=== PATIENT | female | born 1980 | race Caucasian/White ===

== ENCOUNTER 2020-06-02 08:58 | Outpatient (CLI) | payer BC, SELFPAY ==
--- NOTE | ~2020-06-02 | MM_ITS ---
EXAMINATION: MM screening magdi BI w dyan HISTORY: Screening TECHNIQUE: Craniocaudal and mediolateral oblique 3-D tomosynthesis images were obtained and synthetic 2-D images were generated. CAD analysis was submitted and interpreted. COMPARISON: No prior mammogram is available for comparison at this institution. BREAST PARENCHYMAL COMPOSITION: The breasts are heterogeneously dense, which may obscure small masses . FINDINGS: There focal asymmetries in the upper outer quadrant of the left breast. There is no evidenc e for malignancy in the right breast. IMPRESSION: 1. Left breast asymmetries. 2. Additional mammographic views and possible breast ultrasound are recommended. BI-RADS Category 0: Incomplete: Needs additional imaging evaluation. Reviewed, dictated and finalized at location A. IMPRESSION: 1. Left breast asymmetries. 2. Additional mammographic views and possible breast ultrasound are recommended . BI-RADS Category 0: Incomplete: Needs additional imaging evaluation.
== END 2020-06-02 08:59 | disposition home or self-care (01) ==
LOC: ANHIMG 09:02
PROVIDERS: PCP Family Medicine; Visit Provider Family Medicine
DX: Z12.31 Encounter for screening mammogram for malignant neoplasm of breast (principal); R92.8 Other abnormal and inconclusive findings on diagnostic imaging of breast
CPT/HCPCS: 77063; 77067

== ENCOUNTER 2020-06-27 11:50 | Outpatient (CLI) | payer BC, SELFPAY ==
--- NOTE | ~2020-06-27 | MMUS_ITS ---
EXAMINATION: MM diagnostic mammo unilat LT, US breast LT limited HISTORY: Left breast asymmetries on baseline screening mammogram TECHNIQUE: Additional 3-D tomosynthesis images of the left breast were performed and synthetic 2-D im ages were generated. CAD analysis was submitted and interpreted. High resolution limited left breast ultrasound was performed. COMPARISON: 06/02/2020 FINDINGS: MAMMOGRAPHIC FINDINGS: No persistent focal asymmetry is identified with spot compression of the left breast. There is no joe picious mass, calcification, or architectural distortion. ULTRASOUND: There is no evidence of focal abnormal solid or cystic lesion in the vicinity of the mammographic fin ding in question. IMPRESSION: 1. No mammographic or sonographic evidence of malignancy. 2. Recommend routine screening mammography in one year. BI-RADS Category 1: Negative Reviewed, dictated and finalized at location A. IMPRESSION: 1. No mammographic or sonographic evidence of malignancy. 2. Recommend routine screening mammography in one year. BI-RADS Category 1: Negative
== END 2020-06-27 11:51 | disposition home or self-care (01) ==
PROVIDERS: PCP Family Medicine; Visit Provider Family Medicine
DX: R92.8 Other abnormal and inconclusive findings on diagnostic imaging of breast (principal)
CPT/HCPCS: 76642; 77065

== ENCOUNTER 2022-05-15 12:48 | Emergency (ER) | payer OTHER, SELFPAY ==
--- NOTE | ~2022-05-15 | XR_ITS ---
EXAMINATION: XR forearm LT 2V DATE: 05/15/2022 13:30 INDICATION: Left forearm pain TECHNIQUE: AP an lateral views of the left forearm were obtained. COMPARISON: none FINDINGS: Alignment is normal. No fracture. Joint spaces are normal. Soft tissues are unremarkable. No left elb ow joint effusion. IMPRESSION: 1. . Negative left forearm radiographs. Reviewed, dictated and finalized at location A.
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
[2022-05-15 12:49] VITALS: BP 146/107; PULSE 101; RESP 20; TEMP 36.6; O2SAT 95
--- NOTE | 2022-05-15 13:01 | ECG_ITS ---
Measurements Intervals [place] Rate: 95 P: 42 VA: 155 QRS: 35 QRSD: 96 T: 28 QT: 344 QTc: 434 Interpretive Statements SINUS RHYTHM POSSIBLE INFERIOR MYOCARDIAL INFARCTION , PROBABLY OLD [30 ms Q WAVE IN II/aVF] ABNORMAL ECG Electronically Signed On 05-15-2022 13:43:30 CDT by Americo Du M.D.
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
[2022-05-15] MEDS: IBUPROFEN 400 MG TABLET 800 MG PO (13:47)
[2022-05-15 14:05] VITALS: BP 116/75; PULSE 96; RESP 14; O2SAT 97
== END 2022-05-15 14:05 | disposition home or self-care (01) ==
PROVIDERS: Emergency Provider General Practice; PCP Family Medicine
DX: S20.02XA Contusion of left breast, initial encounter (principal); S50.812A Abrasion of left forearm, initial encounter; E03.9 Hypothyroidism, unspecified; V43.52XA Car driver injured in collision with other type car in traffic accident, initial encounter; R94.31 Abnormal electrocardiogram [ECG] [EKG]
CPT/HCPCS: 71046; 73090; 93005; 99284; A9270

== ENCOUNTER 2022-09-16 09:26 | Emergency (ER) | payer OTHER, SELFPAY ==
[2022-09-16 09:47] VITALS: BP 149/105; PULSE 79; RESP 16; TEMP 36.8; O2SAT 99
--- NOTE | 2022-09-16 10:35 | ED.URI ---
HPI - URI/Sore Throat General Chief Complaint: Upper Respiratory Infection Stated Complaint: Cough, Sore Throat Source: patient Mode of arrival: ambulatory Limitations: no limitations History of Present Illness HPI Narrative: 41-year-old female presents to the [facility] with complaints of sore throat, cough runny nose since this morning. Patient has not tried taking any [id number] medications for her symptoms. Patient denies body aches, chills, fever, headache, nausea vomiting or diarrhea. Patient denies sick contacts. Patient denies recent travel MD elicited complaint: cough, sore throat, rhinorrhea and nasal congestion Onset (ago): hour(s) (5) Able to tolerate fluids by mouth: Yes Exacerbating factors: nothing Relieving factors: nothing Associated symptoms: denies other symptoms Treatments prior to arrival: none Related Data Home Medications Medication Instructions Recorded Confirmed levothyroxine 125 mcg tablet 125 mcg DIRECTED 09/16/22 09/16/22 venlafaxine 75 mg capsule,extended 75 mg PO DIRECTED 09/16/22 09/16/22 release 24 hr Allergies Allergy/AdvReac Type Severity Reaction Status Date / Time No Known Allergies Allergy Verified 05/15/22 12:52 Review of Systems Constitutional: Constitutional: Denies chills, Denies fatigue, Denies fever(s) and Denies weakness ENT: Denies dizziness, Denies epistaxis, Reports nasal congestion and Reports sore throat Cardiovascular: Cardiovascular: Denies chest pain Respiratory: Respiratory: Denies chest congestion, Reports cough, Denies dyspnea and Denies wheezing Gastrointestinal: Gastrointestinal: Denies diarrhea, Denies nausea and Denies vomiting Integumentary/Breasts: Skin/Breast: Denies rash Allergic/Immunologic: Allergic/Immunologic: Denies lip swelling, Denies throat swelling, Denies tongue swelling and Denies wheezing PMFSH Past Medical History Medical History Hypothyroidism Family History Family History Mother Family history of seizure disorder Social History Social History Smoking status: Never smoker Alcohol intake: current Comments At time of signature, I agree with nursing past medical, surgical, social and family history. There is no relevant family history pertinent to the presenting complaint. Exam Const: General: healthy appearing Nutritional Appearance: well nourished Orientation/consciousness: patient oriented x3 Limitations: no limitations HENMT: Head: normal to inspection Ears: external ears normal and TM's normal bilaterally Face/Nose/Sinus: Nasal discharge present clear bilateral Face and sinus: normal facial exam Mouth: Yes Normal oral and palatal mucosa present and Yes moist mucous membranes Throat: uvula midline Other: mild erythema noted to posterior pharynx. Moderate nasal congestion noted Neck: Neck: normal visual inspection Resp: Effort & Inspection: normal respiratory effort and not labored Auscultation: clear to auscultation bilaterally, no crackles, no rales, no rhonchi and no wheezes Cardio: Rate: regular rate Rhythm: regular rhythm Heart sounds: no murmurs Skin: General skin exam: normal color Rashes: no rashes Wounds: no wounds Neuro: General: patient oriented x3 Speech: normal speech Psych: Affect: normal affect Attitude: cooperative Course Course Level of Care: Express Care Visit Vital Signs Vital signs: Vital Signs Temperature 36.8 C 09/16/22 09:47 Pulse Rate 79 09/16/22 09:47 Respiratory Rate 16 09/16/22 09:47 Blood Pressure 149/105 H 09/16/22 09:47 Pulse Oximetry 99 09/16/22 09:47 Oxygen Delivery Room Air 09/16/22 09:47 Temperature 36.8 C 09/16/22 09:47 Pulse Rate 79 09/16/22 09:47 Respiratory Rate 16 09/16/22 09:47 Blood Pressure 149/105 H 09/16/22 09:47 Pulse Oxim
== END 2022-09-16 10:48 | disposition home or self-care (01) ==
PROVIDERS: Emergency Provider Nurse Practitioner Family; PCP Family Medicine
DX: B34.9 Viral infection, unspecified (principal); Z20.822 Contact with and (suspected) exposure to COVID-19; E03.9 Hypothyroidism, unspecified
CPT/HCPCS: 87081; 87426; 99213; C9803; G0463

== ENCOUNTER 2022-12-17 08:36 | Emergency (ER) | payer OTHER, SELFPAY ==
[2022-12-17 08:50] VITALS: BP 124/92; PULSE 80; RESP 16; TEMP 35.8; O2SAT 99
--- NOTE | 2022-12-17 09:11 | ED.URI ---
HPI - URI/Sore Throat General Chief Complaint: Upper Respiratory Infection Stated Complaint: cough Time Seen by Provider: 12/17/22 09:11 Source: patient, RN notes reviewed and old records reviewed Mode of arrival: ambulatory Limitations: no limitations History of Present Illness HPI Narrative: 42-year-old female presents to the [facility] with complaints of a cough for 3 days. Denies fevers. Has taken 1 dose of cold medicine and states she was not better so she came to be evaluated Onset (ago): day(s) (3) Related Data Home Medications Medication Instructions Recorded Confirmed levothyroxine 125 mcg tablet 125 mcg DIRECTED 09/16/22 12/17/22 venlafaxine 75 mg capsule,extended 75 mg PO DIRECTED 09/16/22 12/17/22 release 24 hr venlafaxine 150 mg 150 mg PO DIRECTED 12/17/22 12/17/22 capsule,extended release 24 hr Allergies Allergy/AdvReac Type Severity Reaction Status Date / Time No Known Allergies Allergy Verified 05/15/22 12:52 Review of Systems Review of Systems: All systems reviewed & are unremarkable except as noted in HPI and below Constitutional: Constitutional: Reports no additional constitutional complaints Eyes: Eyes: Reports no additional eye complaints ENT: Reports as per HPI Cardiovascular: Cardiovascular: Reports no additional cardiovascular complaints, Denies chest pain and Denies dyspnea Respiratory: Respiratory: Reports no additional respiratory complaints, Denies chest congestion, Denies cough and Denies dyspnea Gastrointestinal: Gastrointestinal: Reports no additional gastrointestinal complaints, Denies abdominal pain, Denies nausea and Denies vomiting Musculoskeletal: Musculoskeletal: Reports no additional musculoskeletal complaints Integumentary/Breasts: Skin/Breast: Reports system reviewed and no additional complaints, except as docu Neurologic: Reports system reviewed and no additional complaints, except as documented Psychiatric: Psychiatric: Reports no additional psychiatric complaints Allergic/Immunologic: Allergic/Immunologic: Reports no additional allergic/immunologic complaints PMFSH Past Medical History Medical History Hypothyroidism Family History Family History Mother Family history of seizure disorder Social History Social History Smoking status: Never smoker Alcohol intake: current Comments At the time of my signature, I reviewed and agree with the nursing past medical, surgical, social, and family history. There is no relevant family history pertinent to the patient complaint. Exam Const: General: cooperative, healthy appearing, comfortable, no acute distress, well developed, alert and well nourished Nutritional Appearance: well nourished Orientation/consciousness: patient oriented x3 Limitations: no limitations HENMT: Head: normal to inspection Ears: hearing grossly normal bilaterally and external ears normal Face/Nose/Sinus: Normal external nose present, Normal nares present, Normal nasal mucous membranes and turbinates present and normal facial exam Face and sinus: normal facial exam Mouth: Yes Normal oral and palatal mucosa present, Yes lip normal and Yes moist mucous membranes Throat: posterior oropharynx normal, uvula midline and postnasal drainage Eyes: General: appearance normal, both eyes and all related structures Alignment and Position: alignment normal Periorbital: periorbital findings normal Conjunctivae: conjunctivae normal Pupils: Equal, round and reactive pupils present EOM: EOMs intact bilaterally Neck: Neck: normal visual inspection, full ROM, no lymphadenopathy and no meningeal signs Chest: Chest palpation & inspection: normal inspection of the chest Resp: Effort & Inspection: normal respiratory effort and able to speak in complete sentences Auscultation:
== END 2022-12-17 09:46 | disposition home or self-care (01) ==
PROVIDERS: Emergency Provider Nurse Practitioner; PCP Family Medicine
DX: J06.9 Acute upper respiratory infection, unspecified (principal); E03.9 Hypothyroidism, unspecified
CPT/HCPCS: 99213; G0463

== ENCOUNTER 2023-07-16 09:52 | Emergency (ER) | payer OTHER, SELFPAY ==
--- NOTE | 2023-07-16 09:55 | ED.URI ---
HPI - URI/Sore Throat General Chief Complaint: Upper Respiratory Infection Stated Complaint: Sinus Time Seen by Provider: 07/16/23 10:00 Source: patient, RN notes reviewed and old records reviewed Mode of arrival: ambulatory Limitations: no limitations History of Present Illness HPI Narrative: 42 year female presents to the [facility] with chills, headache, cough and runny nose since last night. No treatment prior to arrival, states I have nothing at home. ? Denies chest pain, shortness of breath. Denies abdominal pain. Treatments prior to arrival: none Related Data Home Medications Medication Instructions Recorded Confirmed levothyroxine 125 mcg tablet 125 mcg DIRECTED 09/16/22 07/16/23 venlafaxine 75 mg capsule,extended 75 mg PO DIRECTED 09/16/22 07/16/23 release 24 hr venlafaxine 150 mg 150 mg PO DIRECTED 12/17/22 07/16/23 capsule,extended release 24 hr Allergies Allergy/AdvReac Type Severity Reaction Status Date / Time No Known Allergies Allergy Verified 07/16/23 10:01 Review of Systems Review of Systems: All systems reviewed & are unremarkable except as noted in HPI and below Constitutional: Constitutional: Reports as per HPI Eyes: Eyes: Reports no additional eye complaints ENT: Reports as per HPI Cardiovascular: Cardiovascular: Reports no additional cardiovascular complaints, Denies chest pain and Denies dyspnea Respiratory: Respiratory: Reports no additional respiratory complaints, Denies chest congestion, Denies cough and Denies dyspnea Gastrointestinal: Gastrointestinal: Reports no additional gastrointestinal complaints, Denies abdominal pain, Denies nausea and Denies vomiting Musculoskeletal: Musculoskeletal: Reports no additional musculoskeletal complaints Integumentary/Breasts: Skin/Breast: Reports system reviewed and no additional complaints, except as docu Neurologic: Reports system reviewed and no additional complaints, except as documented Psychiatric: Psychiatric: Reports no additional psychiatric complaints Allergic/Immunologic: Allergic/Immunologic: Reports no additional allergic/immunologic complaints PMFSH Past Medical History Medical History Hypothyroidism Family History Family History Mother Family history of seizure disorder Social History Social History Smoking status: Never smoker Alcohol intake: current Comments At the time of my signature, I reviewed and agree with the nursing past medical, surgical, social, and family history. There is no relevant family history pertinent to the patient complaint. Exam Const: General: cooperative, no acute distress, well developed, alert, ill appearing acutely (mild), uncomfortable and well nourished Nutritional Appearance: well nourished and obese Orientation/consciousness: patient oriented x3 Limitations: no limitations HENMT: Head: normal to inspection Ears: hearing grossly normal bilaterally, external ears normal, TM's normal bilaterally, EAC's normal, mastoids normal and no periauricular adenopathy Face/Nose/Sinus: Normal external nose present, Normal nares present, Normal nasal mucous membranes and turbinates present, Nasal discharge present clear bilateral, normal facial exam and face symmetric Face and sinus: normal facial exam and face symmetric Mouth: Yes Normal oral and palatal mucosa present, Yes lip normal and Yes moist mucous membranes Throat: posterior oropharynx normal, uvula midline and postnasal drainage Eyes: General: appearance normal, both eyes and all related structures Alignment and Position: alignment normal Periorbital: periorbital findings normal Pupils: Equal, round and reactive pupils present EOM: EOMs intact bilaterally Neck: Neck: normal visual inspection, full ROM, no lymphadenopathy and no meningeal signs Chest:
[2023-07-16 10:03] VITALS: BP 136/95; PULSE 106; RESP 16; TEMP 37.5; O2SAT 100
== END 2023-07-16 10:13 | disposition home or self-care (01) ==
PROVIDERS: Emergency Provider Nurse Practitioner; PCP Family Medicine
DX: U07.1 COVID-19 (principal); E03.9 Hypothyroidism, unspecified
CPT/HCPCS: 87426; 87804; 99213; C9803; G0463

== ENCOUNTER 2023-07-22 16:24 | Emergency (ER) | payer OTHER, SELFPAY ==
[2023-07-22 16:43] VITALS: BP 110/84; PULSE 80; RESP 16; TEMP 37.2; O2SAT 100
--- NOTE | 2023-07-22 16:55 | ED.URI ---
HPI - URI/Sore Throat General Chief Complaint: Upper Respiratory Infection Stated Complaint: Allgeries Time Seen by Provider: 07/22/23 16:55 Source: patient, RN notes reviewed and old records reviewed Mode of arrival: ambulatory Limitations: no limitations History of Present Illness HPI Narrative: 42-year-old female presents to the [facility] follow-up from [facility] that she tested positive last week. Tested positive on the 16 of July. Patient requesting retesting, discussed with patient that we do not retest that according to CDC guidelines she is at a quarantine after 5 days of symptoms. Patient states that she did finish her Paxlovid Currently has no symptoms and states that she is feeling better. Related Data Home Medications Medication Instructions Recorded Confirmed levothyroxine 125 mcg tablet 125 mcg DIRECTED 09/16/22 07/22/23 venlafaxine 75 mg capsule,extended 75 mg PO DIRECTED 09/16/22 07/22/23 release 24 hr venlafaxine 150 mg 150 mg PO DIRECTED 12/17/22 07/22/23 capsule,extended release 24 hr Allergies Allergy/AdvReac Type Severity Reaction Status Date / Time No Known Allergies Allergy Verified 07/22/23 16:42 Review of Systems Review of Systems: All systems reviewed & are unremarkable except as noted in HPI and below Constitutional: Constitutional: Reports no additional constitutional complaints Eyes: Eyes: Reports no additional eye complaints ENT: Reports system reviewed and no additional complaints, except as documented Cardiovascular: Cardiovascular: Reports no additional cardiovascular complaints, Denies chest pain and Denies dyspnea Respiratory: Respiratory: Reports no additional respiratory complaints, Denies chest congestion, Denies cough and Denies dyspnea Gastrointestinal: Gastrointestinal: Reports no additional gastrointestinal complaints, Denies abdominal pain, Denies nausea and Denies vomiting Musculoskeletal: Musculoskeletal: Reports no additional musculoskeletal complaints Integumentary/Breasts: Skin/Breast: Reports system reviewed and no additional complaints, except as docu Neurologic: Reports system reviewed and no additional complaints, except as documented Psychiatric: Psychiatric: Reports no additional psychiatric complaints Allergic/Immunologic: Allergic/Immunologic: Reports no additional allergic/immunologic complaints PMFSH Past Medical History Medical History Hypothyroidism Family History Family History Mother Family history of seizure disorder Social History Social History Smoking status: Never smoker Alcohol intake: current Comments At the time of my signature, I reviewed and agree with the nursing past medical, surgical, social, and family history. There is no relevant family history pertinent to the patient complaint. Exam Const: General: cooperative, healthy appearing, comfortable, no acute distress, well developed, alert and well nourished Nutritional Appearance: well nourished and obese Orientation/consciousness: patient oriented x3 Limitations: no limitations HENMT: Head: normal to inspection Ears: hearing grossly normal bilaterally and external ears normal Face/Nose/Sinus: Normal external nose present, Normal nares present, Normal nasal mucous membranes and turbinates present, normal facial exam and face symmetric Face and sinus: normal facial exam and face symmetric Eyes: General: appearance normal, both eyes and all related structures Alignment and Position: alignment normal Periorbital: periorbital findings normal Pupils: Equal, round and reactive pupils present EOM: EOMs intact bilaterally Neck: Neck: normal visual inspection, full ROM, no lymphadenopathy and no meningeal signs Chest: Chest palpation & inspection: normal inspection of the chest Resp: Effo
== END 2023-07-22 17:31 | disposition home or self-care (01) ==
PROVIDERS: Emergency Provider Nurse Practitioner; PCP Family Medicine
DX: Z71.1 Person with feared health complaint in whom no diagnosis is made (principal); E03.9 Hypothyroidism, unspecified
CPT/HCPCS: 99211; G0463

== ENCOUNTER 2024-03-17 18:04 | Emergency (ER) | payer OTHER, SELFPAY ==
--- NOTE | ~2024-03-17 | CT_ITS ---
EXAMINATION: CT abdomen pelvis wo con DATE: 03/17/2024 20:16 INDICATION: Right flank pain TECHNIQUE: Computed tomography (CT) of the abdomen and pelvis was performed without intravenous contr ast. Automated exposure control and iterative reconstruction technique were employed. The dose-length product was 1294.64 mGy-cm. COMPARISON: None FINDINGS: Mild bronchiectasis and mild discoid atelectasis in the left lower lobe. Heart size is normal. No per icardial or pleural effusion. Liver, gallbladder, spleen, pancreas and bilateral adrenal glands are n ormal. Bilateral nonobstructing nephrolithiasis with 2 mm stone at a middle calyx of the right kidney and 3 mm stone in an upper pole calyx of the left kidney. No ureteral stones or hydronephrosis. Blad mario is decompressed which limits evaluation. Retroverted uterus appears normal with expected appearan ce of bilateral Essure type fallopian tube occlusion devices. 4.5 cm left adnexal cyst. There are few scattered colonic diverticula without adjacent from trace stranding to suggest diverticulitis. Small bowel and appendix are normal. No free intraperitoneal gas or fluid. No pathologically enlarged abdo samm or pelvic lymphadenopathy. Mild thoracolumbar levocurvature with moderate spondylosis. IMPRESSION: 1. Bilateral nonobstructing nephrolithiasis. No ureteral stones or hydronephrosis. 2. 4.5 cm left ovarian cyst. 3. Bilateral Essure type fallopian tube occlusion devices in expected position. Reviewed, dictated and finalized at location A. IMPRESSION: 1. Bilateral nonobstructing nephrolithiasis. No ureteral stones or hydronephros is. 2. 4.5 cm left ovarian cyst. 3. Bilateral Essure type fallopian tube occlusion devices in expected position.
[2024-03-17 18:13] VITALS: BP 134/89; PULSE 102; RESP 18; TEMP 36.7; O2SAT 99
--- NOTE | 2024-03-17 19:05 | ED.BACK ---
HPI - Back Pain/Injury General Chief Complaint: Back Pain/Injury Stated Complaint: back pain Time Seen by Provider: 03/17/24 18:56 History of Present Illness HPI Narrative: 43-year-old female with no past medical history presents to emergency department for low back pain that started this morning. Patient states she went to bed last night without any symptoms and woke up this morning with sharp pains in her back that is worse with flexion and extension of her back. States she lay still she has no back pain. She denies dysuria or hematuria, urinary frequency urgency, abdominal pain, fever, nausea or vomiting, recent surgeries or procedures on her back. States symptoms do not radiate down her legs, denies numbness or tingling. Denies saddle anesthesia, bladder retention or incontinence, bowel incontinence, history of cancer, IV drug use. No use of immunosuppressants. Denies injury or trauma. She is concerned she slept on her back wrong. She is currently on her menstrual cycle. Related Data Home Medications Medication Instructions Recorded Confirmed levothyroxine 125 mcg tablet 125 mcg DIRECTED 09/16/22 07/22/23 venlafaxine 75 mg capsule,extended 75 mg PO DIRECTED 09/16/22 07/22/23 release 24 hr venlafaxine 150 mg 150 mg PO DIRECTED 12/17/22 07/22/23 capsule,extended release 24 hr Allergies Allergy/AdvReac Type Severity Reaction Status Date / Time No Known Allergies Allergy Verified 03/17/24 18:51 Review of Systems Review of Systems: CONSTITUTIONAL: Denies fever, chills, or sweats. EYES: Denies visual changes, redness, or discharge. ENT: Denies rhinorrhea, congestion, sore throat, or otalgia. CARDIOVASCULAR: Denies chest pain, palpitations, or edema. RESPIRATORY: Denies cough or dyspnea. GASTROINTESTINAL: Denies abdominal pain, nausea, vomiting, or diarrhea. GENITOURINARY: Denies dysuria or hematuria. SKIN: Denies rash or itching. MUSCULOSKELETAL: See HPI NEUROLOGIC: Denies headache, numbness, or weakness. PSYCHIATRIC: Denies anxiety or depression. [facility]LY [facility] Past Medical History Medical History Hypothyroidism Family History Family History Mother Family history of seizure disorder Social History Social History Smoking status: Never smoker Alcohol intake: current Exam Narrative: GENERAL: Well-appearing, well-nourished, and in no acute distress. HEAD: Normocephalic, atraumatic. EYES: PERRLA and EOMI. ENT: Nares clear, no rhinorrhea or epistaxis. Mucous membranes moist. NECK: Supple. BACK: No midline lumbar spinous tenderness, step-offs or deformities. Tenderness throughout the paraspinous muscles and low back. No overlying skin changes. CHEST: Clear to auscultation. No respiratory distress. HEART: Regular rate and rhythm. No murmur heard. Normal peripheral pulses. ABDOMEN: Soft, nontender, nondistended, normal active bowel sounds. EXTREMITIES: Normal range of motion. No edema. Hip flexion and extension, knee flexion and extension, dorsiflexion and plantar flexion 5/5 bilaterally. Sensation intact throughout. No saddle anesthesia. SKIN: Warm, dry, no rash. NEURO: No focal deficits. Alert and oriented x3 Course Vital Signs Vital signs: Vital Signs Temperature 98.0 F 03/17/24 18:13 Pulse Rate 102 H 03/17/24 18:13 Respiratory Rate 18 03/17/24 18:13 Blood Pressure 134/89 03/17/24 18:13 Pulse Oximetry 99 03/17/24 18:13 Oxygen Delivery Room Air 03/17/24 18:13 Temperature 98.0 F 03/17/24 18:13 Pulse Rate 102 H 03/17/24 18:13 Respiratory Rate 18 03/17/24 18:13 Blood Pressure 134/89 03/17/24 18:13 Pulse Oximetry 99 03/17/24 18:13 Oxygen Delivery Room Air 03/17/24 18:13 MDM - Back Pain/Injury MDM Narrative Medical decision making narrative: 43-year-ol
[2024-03-17] MEDS: CYCLOBENZAPRINE HCL 10 MG TABLET PO (19:13)
[2024-03-17] MEDS: ACETAMINOPHEN 500 MG TABLET 1000 MG PO (19:13)
[2024-03-17] MEDS: KETOROLAC 30 MG/ML VIAL (*BKC) IM (19:13)
[2024-03-17] MEDS: LIDOCAINE 5% PATCH 1 PATCH TRANSDERM (19:13)
[2024-03-17 19:36] LABS: Appearance Urine Turbid (Clear); Bacteria Urine 2+ /hpf; Bilirubin Urine 1+ (Negative); Blood Urine 3+ (Negative); Color Urine Dark Yellow (Yellow); Glucose Urine UA Negative (Negative); Ketones Urine Trace mg/dL (Negative); Leukocyte Esterase Ur Negative LEU/UL (Negative); Need Manual Microscopic Reviewed; Nitrate Urine Negative (Negative); Non Pathogenic Casts 0-2; Protein Urine 3+ mg/dL (Negative); RBC Urine >100 /hpf (0-2); Squamous Epithelial Cell Urine Moderate /hpf (Few); WBC Urine 21-50 /hpf (0-3)
[2024-03-17 19:37] LABS: Add Urine Microscopic? YES; Specific Grav Ur 1.041 (1.001-1.035)
--- NOTE | 2024-03-17 19:45 | PC.NURSE ---
patient refused to do test, there's no way that I can be because I am on my period right now .
[2024-03-17] MEDS: SULFAMETHOXAZOLE/TRIMETHOPRIM 800/160 MG DS TABLET 1 TAB PO (20:50)
[2024-03-17 20:54] VITALS: BP 141/74; PULSE 78; RESP 20; O2SAT 98
== END 2024-03-17 20:54 | disposition home or self-care (01) ==
PROVIDERS: Emergency Provider Physician Assistant; PCP Family Medicine
DX: N83.202 Unspecified ovarian cyst, left side (principal); M54.50 Low back pain, unspecified; R82.998 Other abnormal findings in urine; E03.9 Hypothyroidism, unspecified; Z79.899 Other long term (current) drug therapy; N20.0 Calculus of kidney; Z97.5 Presence of (intrauterine) contraceptive device
CPT/HCPCS: 74176; 81001; 87086; 87088; 96372; 99284; A9270; J1885

== ENCOUNTER 2024-04-12 15:51 | Emergency (ER) | payer OTHER, SELFPAY ==
--- NOTE | ~2024-04-12 | XR_ITS ---
EXAM: XR pelvis 1-2V DATE: 04/12/2024 18:10 HISTORY: fall PAIN MOSTLY TO LEFT BUTTOCK WITH SOME BRUISING . COMPARISON: None available. FINDINGS: Normal mineralization. No fracture or dislocation. No lytic or blastic lesion. Joint space s are maintained. No erosion or periosteal change. Tubal ligations. Soft tissues within normal limits . IMPRESSION: No acute osseous finding in the pelvis. Reviewed, dictated and finalized at location K.
--- NOTE | ~2024-04-12 | CT_ITS ---
EXAMINATION: CT lumbar spine wo con DATE: 04/12/2024 16:54 INDICATION: Low back pain post fall TECHNIQUE: Computed tomography (CT) of the lumbar spine was performed without intravenous contrast. A utomated exposure control and iterative reconstruction technique were employed. The dose-length produ ct was 1172.13 mGy-cm. COMPARISON: CT dated 03/17/2024 FINDINGS: Alignment is normal. Chronic minimal likely physiologic anterior wedging at T11. Lumbar jeri tebral body heights are normal. Moderate disc height loss at T10-T11 and L2-L3, mild disc height loss at T11-T12, L1-L2, L3-L4 and L4-L5 which are unchanged. A few nonobstructing small stones scattered throughout calyces of the left kidney, the largest measuring up to 3 mm. Some of the calcific density appears more amorphous and/or and attenuation suggesting possible medullary nephrocalcinosis. Partia lly visualized prominent subcutaneous hematoma overlying the left posterior iliac spine. The followin g disc levels are specifically discussed: T11-T12: Small small osteophyte along the margin of a small right paracentral disc protrusion. Develo pmentally unfused apophyseal center of the left the superior articular process of T12. There is mild bilateral facet joint osteoarthritis. There is no neural foraminal stenosis. There is mild central ca nal stenosis. T12-L1: The disc does not extend beyond the endplate margin. Developmentally unfused apophyseal cente rs of the bilateral transverse and superior articular processes of L1. There is mild bilateral facet joint osteoarthritis. There is no neural foraminal stenosis. There is no central canal stenosis. L1-L2: Moderate size central disc extrusion with the extrusion extending 1.3 cm cephalad to the level of the inferior endplate of L1. This appears to been subtly present on review of the prior CT. Unfus ed apophyseal center at the left superior articular process of L2. There is mild bilateral facet join t osteoarthritis. There is no neural foraminal stenosis. There is mild central canal stenosis. L2-L3: Disc is bulging. There is mild bilateral facet joint osteoarthritis. There is mild bilateral n eural foraminal stenosis. There is mild central canal stenosis. L3-L4: Disc is bulging. There is mild right and mild to moderate left facet joint osteoarthritis. The re is mild bilateral neural foraminal stenosis. There is mild central canal stenosis. L4-L5: Disc is bulging. There is mild to moderate bilateral facet joint osteoarthritis. There is mild left and moderate right neural foraminal stenosis. There is mild central canal stenosis. L5-S1: Disc is bulging. There is mild left and mild to moderate right facet joint osteoarthritis. The re is mild to moderate left and minimal right neural foraminal stenosis. There is no central canal st enosis. IMPRESSION: 1. Mild to moderate lumbar and lower thoracic spondylosis. No acute osseous abnormality. 2. Partially visualized prominent subcutaneous hematoma posterior to the left posterior iliac spine. 3. Nonobstructing left nephrolithiasis with suggestion of possible mild associated medullary nephroca lcinosis. Reviewed, dictated and finalized at location A. IMPRESSION: 1. Mild to moderate lumbar and lower thoracic spondylosis. No acute osseous abn ormality. 2. Partially visualized prominent subcutaneous hematoma posterior to the left p osterior iliac spine. 3. Nonobstructing left nephrolithiasis with suggestion of possible mild associa benito medullary nephrocalcinosis.
[2024-04-12 16:30] VITALS: BP 141/89; PULSE 96; RESP 20; TEMP 36.3; O2SAT 100
--- NOTE | 2024-04-12 16:33 | ED.BACK ---
HPI - Back Pain/Injury General Chief Complaint: Back Pain/Injury Stated Complaint: fell down 4 stairs today, now has back pain Time Seen by Provider: 04/12/24 16:33 Focused HPI: This is a 43-year-old female that presents to the emergency department after a fall down stairs. She did not hit her head or lose consciousness. Reports slipping and falling down a couple of steps. Reports she has had low back pain since. Worse with ambulation and relieved with rest. Denies numbness or weakness. GENERAL: Well-appearing, well-nourished, and in no acute distress. HEAD: Normocephalic, atraumatic. CHEST: Clear to auscultation. ?No respiratory distress. HEART: Regular rate and rhythm.? NEURO: ?Alert and oriented x3. Patient screened in triage and initial orders placed.? ?Additional care and disposition to be based upon?diagnostic testing and treatment. Source: patient Mode of arrival: ambulatory Limitations: no limitations Related Data Home Medications Medication Instructions Recorded Confirmed levothyroxine 125 mcg tablet 125 mcg DIRECTED 09/16/22 07/22/23 venlafaxine 75 mg capsule,extended 75 mg PO DIRECTED 09/16/22 07/22/23 release 24 hr venlafaxine 150 mg 150 mg PO DIRECTED 12/17/22 07/22/23 capsule,extended release 24 hr Allergies Allergy/AdvReac Type Severity Reaction Status Date / Time No Known Allergies Allergy Verified 04/12/24 17:52 Review of Systems Review of Systems: CONSTITUTIONAL: Denies fever MUSCULOSKELETAL: Reports back pain, and myalgia. NEUROLOGIC: Denies numbness, or weakness All systems reviewed & are unremarkable except as noted in HPI and below PMFSH Past Medical History Medical History Hypothyroidism Family History Family History Mother Family history of seizure disorder Social History Social History Smoking status: Never smoker Alcohol intake: current Exam Narrative: GENERAL: Well-appearing, well-nourished, and in no acute distress. HEAD: Normocephalic, atraumatic. EYES: EOMI. CHEST: Clear to auscultation. No respiratory distress. No wheezes rales or rhonchi HEART: Regular rate and rhythm. No murmur heard. Normal peripheral pulses. BACK: Tender to palpation of midline lumbar spine EXTREMITIES: Normal range of motion. No edema. SKIN: Warm, dry, no rash. NEURO: No focal deficits. Alert and oriented x3. Normal gait PSYCH: Normal mood and affect Course Course Emergency Course: patient updated on her workup and agrees with plan of care Vital Signs Vital signs: Vital Signs Temperature 97.4 F L 04/12/24 16:30 Pulse Rate 96 04/12/24 16:30 Respiratory Rate 20 04/12/24 16:30 Blood Pressure 141/89 H 04/12/24 16:30 Pulse Oximetry 100 04/12/24 16:30 Oxygen Delivery Room Air 04/12/24 16:30 Temperature 97.4 F L 04/12/24 16:30 Pulse Rate 90 04/12/24 17:54 Respiratory Rate 15 04/12/24 17:54 Blood Pressure 152/105 H 04/12/24 17:54 Pulse Oximetry 100 04/12/24 17:54 Oxygen Delivery Room Air 04/12/24 16:30 MDM - Back Pain/Injury MDM Narrative Medical decision making narrative: Patient presents to the emergency department for low back pain after a fall. Patient is neurologically intact. CT lumbar spine is without acute osseous abnormalities. Does show a hematoma. Pelvis x-ray without acute osseous abnormalities. Patient was updated on her workup and agrees with plan of care. Instructed to rest, ice and take [id number] pain medication as needed. She is to follow up with primary provider. She was given warnings to return to the ER Differential Diagnosis Differential diagnosis: Likely other ( lumbar spine fracture, contusion, pelvic fracture) Imaging Data Radiologist's impression: ITS Impressions Lumbar Spine CT 04/12/24 16:58 IMP
[2024-04-12 17:54] VITALS: BP 152/105; PULSE 90; RESP 15; O2SAT 100
[2024-04-12] MEDS: ACETAMINOPHEN 500 MG TABLET 1000 MG PO (17:58)
[2024-04-12 18:38] VITALS: BP 149/111; PULSE 90; RESP 15; TEMP 37; O2SAT 98
== END 2024-04-12 18:38 | disposition home or self-care (01) ==
PROVIDERS: Emergency Provider Physician Assistant; PCP Family Medicine
DX: S30.0XXA Contusion of lower back and pelvis, initial encounter (principal); E03.9 Hypothyroidism, unspecified; M47.816 Spondylosis without myelopathy or radiculopathy, lumbar region; M47.814 Spondylosis without myelopathy or radiculopathy, thoracic region; N20.0 Calculus of kidney; W10.9XXA Fall (on) (from) unspecified stairs and steps, initial encounter
CPT/HCPCS: 72131; 72170; 81025; 99284; A9270

== ENCOUNTER 2024-08-10 17:54 | Emergency (ER) | payer OTHER, SELFPAY ==
[2024-08-10 18:10] VITALS: BP 140/107; PULSE 100; RESP 20; TEMP 37.7; O2SAT 98
--- NOTE | 2024-08-10 19:02 | ED.GENADULT ---
HPI - General Adult General Chief complaint: Unspecified Stated complaint: neck swelling right side Time Seen by Provider: 08/10/24 19:02 Source: patient, RN notes reviewed and old records reviewed Mode of arrival: ambulatory Limitations: no limitations History of Present Illness HPI narrative: Patient presents with complaints of swelling to the right side of the neck. She reports the swelling has been present for approximately 1 week. She denies any injury or trauma. She is able to speak clearly, manage her own secretions. No drooling or stridor. She reports that she is concerned because now the affected area has become tender so the touch. She has not been taking any medication for her symptoms. Able to move the neck freely. Denies any fever, chills, sweats Related Data Home Medications Medication Instructions Recorded Confirmed levothyroxine 125 mcg tablet 125 mcg DIRECTED 09/16/22 08/10/24 venlafaxine 150 mg 150 mg PO DIRECTED 12/17/22 08/10/24 capsule,extended release 24 hr Allergies Allergy/AdvReac Type Severity Reaction Status Date / Time No Known Allergies Allergy Verified 08/10/24 18:30 Review of Systems Review of Systems: All systems reviewed & are unremarkable except as noted in HPI and below Constitutional: Constitutional: Reports no additional constitutional complaints ENT: Reports system reviewed and no additional complaints, except as documented Cardiovascular: Cardiovascular: Reports as per HPI and Reports no additional cardiovascular complaints Respiratory: Respiratory: Reports as per HPI and Reports no additional respiratory complaints Gastrointestinal: Gastrointestinal: Reports no additional gastrointestinal complaints Hematologic/Lymphatic: Hematologic/Lymphatic: Reports no additional hematologic/lymphatic complaints, Reports as per HPI and Reports lymphadenopathy [facility] Past Medical History Medical History Hypothyroidism Family History Family History Mother Family history of seizure disorder Social History Social History Smoking status: Never smoker Alcohol intake: current Comments At the time of my signature, I reviewed and agree with the nursing past medical, surgical, social, and family history. There is no relevant family history pertinent to the patient complaint. Exam Const: General: cooperative, no acute distress, alert and awake Orientation/consciousness: oriented to person, oriented to place and oriented to time HENMT: Head: normal to inspection Ears: TM's normal bilaterally Mouth: Yes moist mucous membranes Throat: posterior oropharynx normal Neck: Neck: full ROM, no meningeal signs and trachea midline Lymphatic: lymphadenopathy (right anterior) Resp: Effort & Inspection: normal respiratory effort and able to speak in complete sentences Auscultation: clear to auscultation bilaterally, no crackles, no rales, no rhonchi and no wheezes Cardio: Palpation: normal PMI Rate: regular rate Rhythm: regular rhythm Heart sounds: S1 normal heart sound present and S2 normal heart sound present Neuro: General: oriented to person, oriented to place and oriented to time Cranial nerves: Yes CN's II-XII intact bilaterally Psych: Appearance: grossly normal Thought process: Normal thought process present Insight: Good insight present (Psych) Judgement: Good judgement present (Psych) Course Course Level of Care: Express Care Visit Vital Signs Vital signs: Vital Signs Temperature 100 F H 08/10/24 18:10 Pulse Rate 100 08/10/24 18:10 Respiratory Rate 20 08/10/24 18:10 Blood Pressure 140/107 H 08/10/24 18:10 Pulse Oximetry 98 08/10/24 18:10 Oxygen Delivery Room Air 08/10/24 18:10 Temperature 100 F H 08/10/24 18:10 Pulse Rate 100 08/10/24 18:10 Respiratory Rate 20 08/10/24 18:10 Blood Pressure 140/107 H 08/10/24 18:10 Pulse Oximetry 98 08/10/24 18:10 Oxygen Delivery Room Air 08/10/24 18:10 Reviewed Medical Decision Making MDM Narrative Medical decision making narrative: Patient with swelling to the right side of the neck, no obvious source of infection noted. She is able to manage own secretions, has full range of motion to the neck. No sign of injury or trauma. Will treat as lymphadenitis. The importance of close follow-up was discussed with patient, emergency department for new or worse symptoms Discharge instructions reviewed with patient, as well as provided in writing per nursing staff. The instructions also include specific and strict return/GO TO THE ER as well as f/u information. All questions have been answered, and the patient deny any further questions with discharge and discharge plan. Some parts of this dictation were generated by voice recognition software and may contain typographical and/or grammatical inaccuracies. Vital Signs Vital Signs: Vital Signs Temperature 100 F H 08/10/24 18:10 Pulse Rate 100 08/10/24 18:10 Respiratory Rate 20 08/10/24 18:10 Blood Pressure 140/107 H 08/10/24 18:10 Pulse Oximetry 98 08/10/24 18:10 Oxygen Delivery Room Air 08/10/24 18:10 Temperature 100 F H 08/10/24 18:10 Pulse Rate 100 08/10/24 18:10 Respiratory Rate 20 08/10/24 18:10 Blood Pressure 140/107 H 08/10/24 18:10 Pulse Oximetry 98 08/10/24 18:10 Oxygen Delivery Room Air 08/10/24 18:10 reviewed Lab Data Lab results reviewed: Yes I reviewed the patient's lab results. Lab results narrative: reviewed Discharge Plan Discharge Clinical Impression: Lymphadenitis Patient Disposition: Home, Self-Care Condition: Stable Instructions: Antibiotic Form, Lymphadenopathy (ED) Additional Instructions: Take all medications as prescribed. Follow with primary care provider. Emergency department for new or worsened symptoms Patient Language: [place] Prescriptions: New clindamycin HCl 300 mg capsule 300 mg PO TID Qty: 30 0RF No Action venlafaxine 150 mg capsule,extended release 24hr 150 mg PO DIRECTED levothyroxine 125 mcg tablet 125 mcg DIRECTED Follow-up/Referrals: Khang,Helen [employer] [Primary Care Provider] - 2 Days Stand Alone Forms: Work/School Release IP Time of Disposition: 19:17
== END 2024-08-10 19:49 | disposition home or self-care (01) ==
PROVIDERS: Emergency Provider Nurse Practitioner Family; PCP Nurse Practitioner Family
DX: I88.9 Nonspecific lymphadenitis, unspecified (principal)
CPT/HCPCS: 99213; G0463